=== PATIENT | female | born 1995 | race Caucasian/White ===

== ENCOUNTER 2017-02-27 20:12 | Inpatient (IN) | payer OTHER ==
[~2017-02-27] VITALS: Ht 152.4 cm; Wt 69.1 kg
[2017-02-27 21:49] LABS: BASOPHIL % 0.3 % (0-2); PLATELET COUNT 374 x10^3mcL (130-400); RED CELL DISTRIBUTION WIDTH 13.6 % (11.5-14.5)
[2017-02-27 22:03] LABS: CALCIUM 9.1 mg/dL (8.5-10.1); CARBON DIOXIDE 26.7 mmol/L (21-32); CHLORIDE SERUM 103 mmol/L (98-107); CREATININE SERUM 0.9 mg/dL (0.6-1.0); GFR1 > 60 mL/min; GLUCOSE SERUM 106 mg/dL (74-106); SODIUM SERUM 140 mmol/L (136-145)
[2017-02-27 22:16] LABS: AMPHETAMINE QUAL UR NONE DETECTED (NEG <=1000)
[2017-02-27 22:16] LABS: ALBUMIN 4.1 g/dL (3.4-5.0); ALKALINE PHOSPHATASE 118 U/L (46-116); ALT/SGPT 43 U/L (14-59); AST/SGOT 31 U/L (15-37); BILIRUBIN TOTAL 0.2 mg/dL (0.20-1.00); TOTAL PROTEIN, SERUM 8.2 g/dL (6.4-8.2)
[2017-02-28] MEDS ORDERED: ZOLOFT100 MG PO (01:04)
[2017-02-28 02:28] VITALS: BP 126/76
[2017-02-28 02:52] LABS: CHOLESTEROL/HDL RATIO 3.1; T3 TOTAL 1.14 ng/mL
[2017-02-28 02:54] LABS: FREE T4 1.15 ng/dL (0.76-1.46); FREE THYROXINE INDEX 2.8 ug/dL (1.4-4.5); T4(THYROXINE) 8.3 ug/dL (4.7-13.3)
[2017-02-28 05:53] VITALS: BP 103/45
[2017-02-28 06:23] LABS: UA SPECIFIC GRAVITY 1.015 (1.005-1.035); microscopic required? YES; urine erythrocyte 1+ (NEGATIVE)
[2017-02-28 07:53] VITALS: BP 116/63
[2017-02-28 08:12] LABS: BASOPHIL % 1.5 % (0-2); PLATELET COUNT 342 x10^3mcL (130-400); RED CELL DISTRIBUTION WIDTH 13.8 % (11.5-14.5)
[2017-02-28 08:28] LABS: CALCIUM 8.9 mg/dL (8.5-10.1); CARBON DIOXIDE 25.2 mmol/L (21-32); CHLORIDE SERUM 105 mmol/L (98-107); CREATININE SERUM 0.8 mg/dL (0.6-1.0); GFR1 > 60 mL/min; GLUCOSE SERUM 103 mg/dL (74-106); MAGNESIUM 1.9 mg/dL (1.8-2.4); PHOSPHOROUS 3.4 mg/dL (2.5-4.9); POTASSIUM SERUM 4.4 mmol/L (3.5-5.1); SODIUM SERUM 140 mmol/L (136-145)
[2017-02-28 12:12] VITALS: Ht 152.4 cm; Wt 69.1 kg
[2017-02-28 15:26] VITALS: BP 125/75
[2017-02-28 18:00] VITALS: BP 113/58
[2017-02-28 21:57] VITALS: BP 120/59
[2017-03-01 06:07] VITALS: BP 115/63
[2017-03-01 06:36] LABS: BASOPHIL % 0.3 % (0-2); PLATELET COUNT 331 x10^3mcL (130-400); RED CELL DISTRIBUTION WIDTH 13.3 % (11.5-14.5)
[2017-03-01 07:01] LABS: CALCIUM 8.7 mg/dL (8.5-10.1); CARBON DIOXIDE 25.6 mmol/L (21-32); CHLORIDE SERUM 106 mmol/L (98-107); CREATININE SERUM 0.9 mg/dL (0.6-1.0); GFR1 > 60 mL/min; GLUCOSE SERUM 94 mg/dL (74-106); MAGNESIUM 2.1 mg/dL (1.8-2.4); PHOSPHOROUS 3.4 mg/dL (2.5-4.9); POTASSIUM SERUM 4.1 mmol/L (3.5-5.1); SODIUM SERUM 141 mmol/L (136-145)
[2017-03-01 09:07] VITALS: BP 119/67
[2017-03-01] MEDS ORDERED: LEXAPRO10 MG PO (12:21)
[2017-03-01 12:59] VITALS: BP 119/67
[2017-03-01 14:06] VITALS: BP 102/61
== END 2017-03-01 14:45 | disposition home or self-care (01) | DRG 885 ==
LOC: ED 20:12 → DU 02-28 00:36
PROVIDERS: Emergency Medicine; Family Medicine; ADMIT Family Medicine
DX: F33.1 Major depressive disorder, recurrent, moderate (principal); G93.41 Metabolic encephalopathy; R45.851 Suicidal ideations; F40.01 Agoraphobia with panic disorder; F12.10 Cannabis abuse, uncomplicated; Z91.14 Patient's other noncompliance with medication regimen; Z68.29 Body mass index [BMI] 29.0-29.9, adult
CPT/HCPCS: 83880; 84439; G0480; J2405; J7030